=== PATIENT | female | born 1975 | race African-American/Black ===

== ENCOUNTER 2018-07-29 05:47 | Inpatient (IN) | payer SELFPAY ==
[~2018-07-29] VITALS: Ht 162.6 cm; Wt 106.6 kg
[~2018-07-29 05:47] MED LIST: IRON-1 PO; NIFE30TA83 PO
[2018-07-29 06:32] LABS: BASOPHILS % 0.7 % (0.0-2.0); EOSINOPHILS % 2.6 % (0.0-5.0); HEMATOCRIT. 38.5 % (36.0-48.0); HEMOGLOBIN. 12.7 g/dL (12.0-16.0); LYMPHOCYTES % 25.6 % (20.0-50.0); MEAN CORPUSCULAR HEMOGLOBIN 30.4 pg (28.0-32.0); MEAN CORPUSCULAR VOLUME 92.2 fL (81.0-99.0); MONOCYTES % 10.4 % (2.0-8.0); NEUTROPHILS % 60.7 % (40.0-76.0); PLATELET 267 x1000/uL (130-400); RED BLOOD CELL COUNT 4.17 mill/uL (4.2-5.4); RED CELL DISTRIBUTION WIDTH 13.6 % (11.6-14.6)
[2018-07-29] MEDS: LACTATED RINGERS 1,000 ML IV SCH ×3 (06:35→07:40)
[2018-07-29 06:42] LABS: PARTIAL THROMBOPLASTIN TIME 31.5 sec (23.4-31.0)
[2018-07-29 06:44] LABS: CHLORIDE 106 mEq/L (98-107)
[2018-07-29 06:53] LABS: CLARITY URINE CLOUDY (CLEAR); COLOR URINE YELLOW (YELLOW); KETONES URINE NEGATIVE (NEGATIVE); LEUKOCYTE ESTERASE URINE NEGATIVE (NEGATIVE); NITRITE URINE NEGATIVE (NEGATIVE); OCCULT BLOOD URINE NEGATIVE (NEGATIVE); PH URINE 7.5 (4.5-8.0); PROTEIN URINE NEGATIVE (NEGATIVE); SPECIFIC GRAVITY URINE 1.024 (1.005-1.030); UROBILINOGEN URINE 0.2 E.U./dL (0.2-1.0)
[2018-07-29] MEDS ORDERED: METHYLENE BLUE 50 MG/10 ML AMP IV ONE (06:54)
[2018-07-29 06:55] LABS: UCG SCREEN NEGATIVE
[2018-07-29] MEDS ORDERED: VASOPRESSIN 20 UNIT/ML 1ML ONE (06:55)
[2018-07-29] MEDS ORDERED: NEOSTIGMINE METHYLSULFATE 1MG/ML 10 ML VIAL ONE (07:31)
[2018-07-29] MEDS ORDERED: MIDAZOLAM HCL 2 MG/2 ML VIAL ONE (07:31)
[2018-07-29] MEDS ORDERED: PROPOFOL 200MG/20ML VIAL IV ONE (07:31)
[2018-07-29] MEDS ORDERED: ROCURONIUM BROMIDE 10MG/ML VIAL 5ML IV ONE ×2 (07:31→08:22)
[2018-07-29] MEDS ORDERED: FENTANYL CITRATE/PF 50MCG/ML 2ML VIAL ONE (07:31)
[2018-07-29] MEDS ORDERED: SODIUM CHLORIDE 0.9% 10ML VIAL ONE (07:32)
[2018-07-29] MEDS ORDERED: CEFAZOLIN SODIUM 1000MG/VIAL ONE (07:32)
[2018-07-29] MEDS ORDERED: PHENYLEPHRINE HCL 10 MG/ML 1ML (IV VIAL) IV ONE (07:32)
[2018-07-29] MEDS ORDERED: DEXAMETHASONE 4MG/ML 1ML VIAL ONE (07:32)
[2018-07-29] MEDS ORDERED: GLYCOPYRROLATE 0.2 MG/ML 2ML VIAL ONE (07:32)
[2018-07-29] MEDS ORDERED: EPHEDRINE SULFATE 50MG/ML VIAL ONE (07:32)
[2018-07-29] MEDS ORDERED: ONDANSETRON HCL 4MG/2ML INJ ONE (07:32)
[2018-07-29] MEDS ORDERED: SUCCINYLCHOLINE CHLORIDE 200MG/10ML IV ONE (07:32)
[2018-07-29] MEDS ORDERED: METOCLOPRAMIDE HCL 10MG/2ML VIAL ONE (07:32)
[2018-07-29] MEDS ORDERED: FENTANYL CITRATE/PF 50MCG/ML 5ML VIAL ONE (07:53)
[2018-07-29] MEDS ORDERED: SODIUM CHLORIDE 0.9% 1,000 ML IV ONE (10:18)
[2018-07-29] MEDS ORDERED: MORPHINE SULFATE 2 MG/ML CPJ (NOT FOR IM USE) IV PRN (10:30)
[2018-07-29] MEDS ORDERED: MEPERIDINE HCL/PF 25MG/ML CPJ IV PRN ×2 (10:30)
[2018-07-29] MEDS ORDERED: ONDANSETRON HCL 4MG/2ML INJ IV PRN (10:30)
[2018-07-29] MEDS ORDERED: IBUPROFEN 800MG TABLET PO PRN (11:15)
[2018-07-29] MEDS ORDERED: SIMETHICONE 80MG TABLET CHEW PO PRN (11:15)
[2018-07-29] MEDS: HYDROMORPHONE HCL/PF 2MG/ML CPJ IV PRN ×4 (11:29→13:08)
[2018-07-29] MEDS ORDERED: DOCUSATE SODIUM 250MG CAPSULE PO NR (13:00)
[2018-07-29] MEDS ORDERED: HYDROMORPHONE PCA 50 ML IV ONE (13:02)
[2018-07-29] MEDS ORDERED: NALOXONE INJ IV PRN (13:15)
[2018-07-29] MEDS ORDERED: ONDANSETRON INJ IV PRN (13:15)
[2018-07-29] MEDS ORDERED: DIPHENHYDRAMINE INJ IV PRN (13:15)
[2018-07-29] MEDS ORDERED: HYDROMORPHONE PCA 10MG/50ML IV PRN (13:15)
[2018-07-29 13:30] VITALS: BP_SYST 132; BP_SYST 137; BP_DIAS 68
[2018-07-29] MEDS: DEXT 5%/LACTATED RINGERS 1,000 ML IV SCH ×2 (14:44→19:16)
[2018-07-29 16:00] VITALS: BP_SYST 128; BP_SYST 143; BP_DIAS 63; BP_DIAS 92
[2018-07-30 07:11] LABS: BASOPHILS % 0.2 % (0.0-2.0); EOSINOPHILS % 0.1 % (0.0-5.0); HEMATOCRIT. 36.4 % (36.0-48.0); HEMOGLOBIN. 12.2 g/dL (12.0-16.0); LYMPHOCYTES % 12.2 % (20.0-50.0); MEAN CORPUSCULAR HEMOGLOBIN 30.7 pg (28.0-32.0); MEAN CORPUSCULAR VOLUME 91.8 fL (81.0-99.0); MEAN PLATELET VOLUME 9.3 fl (7.4-10.4); MONOCYTES % 9.7 % (2.0-8.0); NEUTROPHILS % 77.8 % (40.0-76.0); PLATELET 241 x1000/uL (130-400); RED BLOOD CELL COUNT 3.97 mill/uL (4.2-5.4); RED CELL DISTRIBUTION WIDTH 13.5 % (11.6-14.6)
[2018-07-30 08:00] VITALS: BP 141/74
[2018-07-30] MEDS ORDERED: NIFEDIPINE XL 30MG TAB PO SCH (09:00)
[2018-07-30] MEDS: DEXT 5%/LACTATED RINGERS 1,000 ML IV SCH (10:01)
[2018-07-30 12:02] VITALS: BP 105/58
[2018-07-30 14:39] VITALS: BP 138/74
== END 2018-07-30 14:54 | disposition home or self-care (01) | DRG 519 ==
LOC: OR 05:47 → 6EST 05:48
PROVIDERS: ADMIT Obstetrics & Gynecology Obstetrics; ATTEND Obstetrics & Gynecology Obstetrics
PROC: 0UB90ZZ Excision of Uterus, Open Approach (ICD-10-PCS; principal; 2018-07-29)
DX: D25.9 Leiomyoma of uterus, unspecified (principal); Z82.3 Family history of stroke; Z83.3 Family history of diabetes mellitus
CPT/HCPCS: 36415; 80048; 81025; 88305; J0330; J0690; J1100; J1170; J2250; J2270; J2370; J2405; J2704; J2710; J2765; J3010; J3490; J7121; Q9968

== ENCOUNTER 2021-07-11 07:26 | Inpatient (IN) | payer SELFPAY ==
[~2021-07-11] VITALS: Ht 165.1 cm; Wt 141.5 kg
[~2021-07-11 07:26] MED LIST changes: +NIFE-33 PO; -NIFE30TA83 PO
[2021-07-11] MEDS ORDERED: METF-873 PO (07:58)
[2021-07-11] MEDS ORDERED: PROP10TA10 PO (07:58)
[2021-07-11] MEDS ORDERED: ASPI-1497 PO (07:59)
[2021-07-11] MEDS ORDERED: TRANEXAMIC ACID 1,000 MG/10 ML IV ONE (08:00)
[2021-07-11] MEDS ORDERED: DEXT 5%/LR + PITOCIN 20UNITS/L 1,000 ML IV SCH (08:00)
[2021-07-11] MEDS ORDERED: TRANEXAMIC ACID 1,000 MG in SODIUM CHLORIDE 0.9% 100 ML IV NR (08:15)
[2021-07-11 08:51] LABS: BASOPHILS % 0.3 % (0.0-2.0); EOSINOPHILS % 2.2 % (0.0-5.0); HEMATOCRIT. 35.5 % (36.0-48.0); HEMOGLOBIN. 11.8 g/dL (12.0-16.0); LYMPHOCYTES % 15.5 % (20.0-50.0); MEAN CORPUSCULAR HEMOGLOBIN 30.5 pg (28.0-32.0); MEAN CORPUSCULAR VOLUME 91.6 fL (81.0-99.0); MEAN PLATELET VOLUME 9.8 fl (7.4-10.4); MONOCYTES % 10.4 % (2.0-8.0); NEUTROPHILS % 71.6 % (40.0-76.0); PLATELET 220 x1000/uL (130-400); RED BLOOD CELL COUNT 3.87 mill/uL (4.2-5.4); RED CELL DISTRIBUTION WIDTH 14.3 % (11.6-14.6)
[2021-07-11] MEDS ORDERED: CITRIC ACID/SODIUM CITRATE SOLN 30ML UDC PO NR (09:00)
[2021-07-11 09:02] LABS: INR 0.9; PARTIAL THROMBOPLASTIN TIME 29.4 sec (23.4-31.0); PROTHROMBIN TIME 10.1 sec (9.6-11.0)
[2021-07-11] MEDS: LACTATED RINGERS 1,000 ML IV SCH ×2 (09:08→09:24)
[2021-07-11] MEDS ORDERED: CARBOPROST TROMETHAMINE 250 MCG/ML AMPUL IM ONE (09:10)
[2021-07-11] MEDS ORDERED: MORPHINE SULFATE/PF 1MG/ML 10ML AMP ONE (09:31)
[2021-07-11] MEDS ORDERED: ONDANSETRON HCL 4MG/2ML INJ ONE (09:32)
[2021-07-11] MEDS ORDERED: OXYTOCIN 10 UNITS/ML 1ML ONE (09:32)
[2021-07-11] MEDS ORDERED: DEXAMETHASONE 4MG/ML 1ML VIAL ONE (09:32)
[2021-07-11] MEDS ORDERED: PHENYLEPHRINE HCL 10 MG/ML 1ML (IV VIAL) IV ONE (09:34)
[2021-07-11] MEDS ORDERED: PROPOFOL 200MG/20ML VIAL IV ONE (09:35)
[2021-07-11 09:38] LABS: CLARITY URINE CLEAR (CLEAR); COLOR URINE YELLOW (YELLOW); KETONES URINE NEGATIVE (NEGATIVE); LEUKOCYTE ESTERASE URINE NEGATIVE (NEGATIVE); NITRITE URINE NEGATIVE (NEGATIVE); OCCULT BLOOD URINE NEGATIVE (NEGATIVE); PROTEIN URINE TRACE (NEGATIVE); SPECIFIC GRAVITY URINE 1.026 (1.005-1.030)
[2021-07-11 09:55] LABS: *AMPHETAMINES SCREEN URINE NEGATIVE (NEGATIVE); *BARBITURATES SCREEN URINE NEGATIVE (NEGATIVE); *BENZODIAZEPINES SCREEN URINE NEGATIVE (NEGATIVE); *COCAINE SCREEN URINE NEGATIVE (NEGATIVE); CANNABINOID URINE SCREEN NEGATIVE (NEGATIVE); METHADONE URINE SCREEN NEGATIVE (NEGATIVE); OPIATES URINE SCREEN NEGATIVE (NEGATIVE); PHENCYCLIDINE URINE SCREEN NEGATIVE (NEGATIVE)
[2021-07-11 10:16] LABS: CHLORIDE 109 mEq/L (98-107)
[2021-07-11 10:31] LABS: D-DIMER 2.32 mg/L FEU (<0.50)
[2021-07-11] MEDS ORDERED: KETOROLAC 60MG/2ML VIAL IM ONE (11:09)
[2021-07-11] MEDS ORDERED: NALOXONE HCL 0.4 MG/ML 1ML VIAL IV PRN (11:30)
[2021-07-11] MEDS ORDERED: FENTANYL CITRATE/PF 50MCG/ML 2ML VIAL IV PRN (11:30)
[2021-07-11] MEDS ORDERED: MORPHINE SULFATE 2 MG/ML CPJ (NOT FOR IM USE) IV PRN (11:30)
[2021-07-11] MEDS ORDERED: LANOLIN OINT 7GM TUBE TOP PRN (11:45)
[2021-07-11] MEDS ORDERED: ONDANSETRON HCL 4MG/2ML INJ IV PRN (11:45)
[2021-07-11 13:18] LABS: HEPATITIS B SURFACE ANTIGEN NEGATIVE
[2021-07-11 14:00] VITALS: BP 134/71
[2021-07-11] MEDS ORDERED: OXYTOCIN 20 UNITS in LACTATED RINGERS 1,000 ML IV SCH (14:00)
[2021-07-11 16:00] VITALS: BP 129/65
[2021-07-11] MEDS: ACETAMINOPHEN 500MG TABLET PO SCH (16:05)
[2021-07-11 20:00] VITALS: BP 123/80
[2021-07-11] MEDS ORDERED: ONDANSETRON HCL 4MG TABLET PO PRN (23:00)
[2021-07-12 00:15] VITALS: BP 119/60
[2021-07-12] MEDS: ACETAMINOPHEN 500MG TABLET PO SCH ×4 (00:19→23:50)
[2021-07-12] MEDS ORDERED: RHO(D) IMMUNE GLOBULIN 300 MCG/SYR IM ONE (03:00)
[2021-07-12 03:30] VITALS: BP 111/55
[2021-07-12 07:45] LABS: BASOPHILS % 0.2 % (0.0-2.0); EOSINOPHILS % 1.1 % (0.0-5.0); HEMOGLOBIN. 10.4 g/dL (12.0-16.0); LYMPHOCYTES % 15.2 % (20.0-50.0); MEAN CORPUSCULAR HEMOGLOBIN 30.9 pg (28.0-32.0); MEAN CORPUSCULAR VOLUME 92.4 fL (81.0-99.0); MEAN PLATELET VOLUME 9.9 fl (7.4-10.4); MONOCYTES % 12.7 % (2.0-8.0); NEUTROPHILS % 70.8 % (40.0-76.0); PLATELET 196 x1000/uL (130-400); RED BLOOD CELL COUNT 3.36 mill/uL (4.2-5.4); RED CELL DISTRIBUTION WIDTH 13.7 % (11.6-14.6)
[2021-07-12 08:00] VITALS: BP_SYST 112; BP_SYST 126; BP_DIAS 62; BP_DIAS 68
[2021-07-12] MEDS: NIFEDIPINE XL 30MG TAB PO SCH (09:58)
[2021-07-12] MEDS: PROPRANOLOL HCL 10MG TABLET PO SCH ×2 (09:59→16:17)
[2021-07-12 16:00] VITALS: BP 126/68
[2021-07-12 19:15] VITALS: BP 146/70
[2021-07-12] MEDS: DOCUSATE SODIUM 100MG CAPSULE PO SCH (19:27)
[2021-07-12] MEDS: IBUPROFEN 800MG TABLET PO PRN (19:27)
[2021-07-13] VITALS: BP 134/68
[2021-07-13] MEDS: IBUPROFEN 800MG TABLET PO PRN ×2 (03:08→15:54)
[2021-07-13 03:10] VITALS: BP 115/64
[2021-07-13 08:00] VITALS: BP 146/79
[2021-07-13] MEDS: NIFEDIPINE XL 30MG TAB PO SCH (09:16)
[2021-07-13] MEDS: ACETAMINOPHEN 500MG TABLET PO SCH ×2 (09:16→18:35)
[2021-07-13] MEDS: PROPRANOLOL HCL 10MG TABLET PO SCH ×2 (09:17→18:36)
[2021-07-13 16:00] VITALS: BP 141/78
[2021-07-13 20:00] VITALS: BP 128/66
[2021-07-13] MEDS: DOCUSATE SODIUM 100MG CAPSULE PO SCH (21:14)
[2021-07-14] MEDS: ACETAMINOPHEN 500MG TABLET PO SCH ×2 (01:51→10:30)
[2021-07-14 04:30] VITALS: BP 146/76
[2021-07-14] MEDS ORDERED: BISACODYL 10MG SUPP PR PRN (04:30)
[2021-07-14] MEDS: PROPRANOLOL HCL 10MG TABLET PO SCH (08:23)
[2021-07-14] MEDS: NIFEDIPINE XL 30MG TAB PO SCH (08:23)
[2021-07-14] MEDS: IBUPROFEN 800MG TABLET PO PRN (08:30)
[2021-07-14 10:00] VITALS: BP 140/74
== END 2021-07-14 11:00 | disposition home or self-care (01) | DRG 540 ==
LOC: OR 07:26 → 8 EST LDRP 07:27 → EDSTATUS 09:00 → 8EST 14:02
PROVIDERS: ADMIT Obstetrics & Gynecology Obstetrics; ATTEND Obstetrics & Gynecology Obstetrics
PROC: 10D00Z1 Extraction of Products of Conception, Low, Open Approach (ICD-10-PCS; principal; 2021-07-11)
DX: O10.92 Unspecified pre-existing hypertension complicating childbirth (principal); I47.1 Supraventricular tachycardia; O99.42 Diseases of the circulatory system complicating childbirth; O99.214 Obesity complicating childbirth; E66.09 Other obesity due to excess calories; Z20.822 Contact with and (suspected) exposure to COVID-19; O24.429 Gestational diabetes mellitus in childbirth, unspecified control; O26.893 Other specified pregnancy related conditions, third trimester; Z3A.38 38 weeks gestation of pregnancy; Z37.0 Single live birth; Z67.11 Type A blood, Rh negative
CPT/HCPCS: 36415; 80053; 80305; 81003; 84550; 85025; 85379; 85384; 86592; 86703; 86762; 86850; 86886; 86900; 86920; 87340; 87426; 88307; 90384; J1100; J1885; J2274; J2370; J2405; J2590; J2704; J7050; J7120; Q0162; A4315; J2791